=== PATIENT | female | born 1955 | race Caucasian/White ===

== ENCOUNTER → 2020-11-22 | Outpatient (CLI) | payer MEDICARE, BC ==
[2013-12-30 18:05] VITALS: BP 177/74
[~2020-11-22] MED LIST: ALBU2.5V8 IH; AMLO-187 PO; BECL8.7A7 IH; BUPR150T21 PO; ESTR0.3T PO; LISI40TA6 PO
--- NOTE | 2020-11-22 11:21 | RAD ---
EXAM: Left foot, 3 views. HISTORY: Pain. COMPARISON: None. FINDINGS: 3 views of the left foot are obtained. There is no acute fracture, dislocation or subluxati on. There is dorsal forefoot soft tissue swelling. No radiodense foreign body is seen. There is a tin y plantar spur. There is minimal enthesopathy at the Achilles tendon insertion. IMPRESSION: Dorsal forefoot soft tissue swelling. No acute osseous finding. Electronically signed by: Lucia Moulton MD (11/22/2020 11:18 AM) [id number]
== END ==
LOC: RAD 10:44
PROVIDERS: ATTEND Internal Medicine
DX: S99.922A Unspecified injury of left foot, initial encounter (principal); M79.89 Other specified soft tissue disorders; M77.8 Other enthesopathies, not elsewhere classified; X58.XXXA Exposure to other specified factors, initial encounter; Y93.89 Activity, other specified; Y92.89 Other specified places as the place of occurrence of the external cause; Y99.8 Other external cause status
CPT/HCPCS: 73630

== ENCOUNTER → 2021-09-08 | Outpatient (CLI) | payer MEDICARE, BC ==
[2013-12-30 18:05] VITALS: BP 177/74
--- NOTE | 2021-09-08 16:36 | RAD ---
Exam: XR FOOT_LEFT 3 VIEWS History: General pain. Injury while walking. Comparison: 11/22/2020 Findings: Decreased osseous mineralization. No fracture or dislocation. Normal alignment at the Lisfranc on non weightbearing. Prominent dorsal forefoot soft tissue swelling. Small Achilles insertion and plantar c alcaneal enthesophytes. Impression: 1. Prominent dorsal forefoot soft tissue swelling without acute osseous abnormality identified. 2. If there is concern for Lisfranc injury, recommend weightbearing radiographs versus CT or MRI of the foot. Electronically signed by: Royer Duong MD (09/08/2021 4:33 PM) [id number]
== END ==
LOC: RAD 14:38
PROVIDERS: ATTEND Internal Medicine
DX: M79.89 Other specified soft tissue disorders (principal); R60.9 Edema, unspecified; M79.672 Pain in left foot; M77.52 Other enthesopathy of left foot and ankle; M77.32 Calcaneal spur, left foot
CPT/HCPCS: 73630